=== PATIENT | male | born 1975 | race Two or more races ===

== ENCOUNTER 2017-04-15 08:44 | Inpatient (IN) | payer OTHER ==
[2017-04-15 09:57] VITALS: BMI 27.8
--- NOTE | 2017-04-15 11:25 | HP ---
CIWA Score - CIWA Score Nausea/Vomitin Muscle Tremors: 4-Moderate,w/Arms Extend Anxiety: 4-Mod. Anxious/Guarded Agitation: 3 Paroxysmal Sweats: 3 Orientation: 0-Oriented Tacttile Disturbances: 0-None Auditory Disturbances: 0-None Visual Disturbances: 0-None Headache: 2-Mild CIWA-Ar Total Score: 19 Admission ROS BHS - HPI Chief Complaint: Withdrawal sx. Allergies/Adverse Reactions: Allergies Allergy/AdvReac Type Severity Reaction Status Date / Time No Known Allergies Allergy Verified 04/15/17 10:22 History of Present Illness: 41 y/o man with a long hx of alcoholism is admitted for detox. Pt. has been in previous detox, denies sobriety. Exam Limitations: No Limitations - Ebola screening Have you traveled outside of the country in the last 21 days: No (N) Have you had contact with anyone from an Ebola affected area: No Have you been sick,other than usual withdrawal symptoms: No Do you have a fever: No - Review of Systems Constitutional: Diaphoresis EENT: reports: No Symptoms Reported Respiratory: reports: No Symptoms reported Cardiac: reports: No Symptoms Reported GI: reports: Nausea, Abdominal cramping Musculoskeletal: reports: No Symptoms Reported Integumentary: reports: Sweating Neuro: reports: Headache, Tremors Endocrine: reports: No Symptoms Reported Hematology: reports: No Symptoms Reported Psychiatric: reports: No Sypmtoms Reported Other Systems: Reviewed and Negative Patient History - Patient Medical History Hx Anemia: No Hx Asthma: No Hx Chronic Obstructive Pulmonary Disease (COPD): No Hx Cancer: No Hx Cardiac Disorders: No Hx Congestive Heart Failure: No Hx Hypertension: No Hx Hypercholesterolemia: No Hx Pacemaker: No HX Cerebrovascular Accident: No Hx Seizures: No Hx Dementia: No Hx Diabetes: No Hx Gastrointestinal Disorders: Yes (Dyspepsia) Hx Liver Disease: No Hx Genitourinary Disorders: No Hx Sexually Transmitted Disorders: No Hx Renal Disease (ESRD): No Hx Thyroid Disease: No Hx Human Immunodeficiency Virus (HIV): No Hx Hepatitis C: No Hx Depression: Yes Hx Suicide Attempt: No Hx Bipolar Disorder: No Hx Schizophrenia: No - Patient Surgical History Past Surgical History: Yes Hx Orthopedic Surgery: Yes (right ankle 1992 & right hand 2015) - PPD History Previous Implant?: Yes Documented Results: Negative w/o proof Implanted On Prior [facility] Admission?: Yes Date: 05/22/15 PPD to be Administered?: Yes - Smoking Cessation Smoking history: Current every day smoker Have you smoked in the past 12 months: Yes Aproximately how many cigarettes per day: 3 Hx Chewing Tobacco Use: No Initiated information on smoking cessation: Yes 'Breaking Loose' booklet given: 04/15/17 - Substance & Tx. History Hx Alcohol Use: Yes Hx Substance Use: Yes Substance Use Type: Alcohol, Cocaine, Marijuana Hx Substance Use Treatment: Yes (Detox at [facility] 05/2015) - Substances Abused Alcohol Route: Oral Frequency: Daily Amount used: FIFTH OF VODKA Age of first use: 22 Date of Last Use: 04/14/17 Crack Route: Smoking Frequency: 3-6 times per week Amount used: $150 Age of first use: 36 Date of Last Use: 04/12/17 Marijuana/Hashish Route: Smoking Frequency: 1-3 times last 30 days Amount used: 1 BLUNT Age of first use: 22 Date of Last Use: 04/14/17 Family Disease History - Family Disease History Family History: Denies Admission Physical Exam [facility] - Vital Signs Vital Signs: Vital Signs - 24 hr 04/15/17 09:44 Temperature 97.7 F Pulse Rate 72 Respiratory 18 Rate Blood Pressure 100/67 - Physical General Appearance: Yes: Tremorous, Sweating, Anxious HEENTM: Yes: Within Normal Limits Respiratory: Yes: Chest Non-Tender, Lungs Clear Neck: Yes: Supple Breast: Yes: Breast Exam Deferred Cardiology: Yes: Regular Rhythm, Regular Rate, S1, S2 Abdominal: Yes: Normal Bowel Sounds, Non Tender, Flat Genitourinary: Yes: Within Normal Limits Back: Yes: Within Normal Limits Musculoskeletal: Yes: Within Normal Limits Extremities: Yes: Tremors Neurological: Yes: Fully Oriented, Alert Integumentary: Yes: Diaphoresis Lymphatic: Yes: Within Normal Limits - Diagnostic (1) Alcohol dependence with uncomplicated withdrawal Current Visit: Yes Status: Acute (2) Cocaine dependence Current Visit: Yes Status: Acute Qualifiers: Substance use status: uncomplicated Qualified Code(s): F14.20 - Cocaine dependence, uncomplicated Cleared for Admission [facility] - Detox or Rehab [facility] Level of Care: Medically Managed Detox Regimen/Protocol: Librium [facility] Breath Alcohol Content Breath Alcohol Content: 0 Urine Drug Screen - Results Drug Screen Negative: No Urine Drug Screen Results: THC-Marijuana, PACO-Cocaine
[2017-04-15] MEDS ORDERED: IBUPROFEN 400 MG TABLET (FP) PO PRN (11:33)
[2017-04-15] MEDS ORDERED: ACETAMINOPHEN 325 MG TABLET (FP) PO PRN (11:33)
[2017-04-15] MEDS ORDERED: MENTHOL/PHENOL 1 EACH UD MM PRN (11:33)
[2017-04-15] MEDS ORDERED: LOPERAMIDE HCL 2 MG CAPSULE PO PRN (11:33)
[2017-04-15] MEDS ORDERED: guaiFENesin/D-METHORPHAN HB 10 ML UNIT-DOSE CUPS PO PRN (11:33)
[2017-04-15] MEDS ORDERED: NICOTINE POLACRILEX 2 MG GUM BUC PRN (11:33)
[2017-04-15] MEDS ORDERED: MAGNESIUM CITRATE 300 ML BOTTLE PO PRN (11:33)
[2017-04-15] MEDS ORDERED: P-EPHED 60MG/TRIPROLIDI 2.5MG TABLET PO PRN (11:33)
[2017-04-15] MEDS ORDERED: MAGNESIUM HYDROX 2400MG/30ML ORAL SUSPENSION 30 ML CUP PO PRN (11:33)
[2017-04-15] MEDS ORDERED: chlordiazePOXIDE HCL 25 MG CAPSULE PO ONE (12:17)
[2017-04-15] MEDS: NICOTINE 7 MG/24 HOURS TOPICAL PATCH TD SCH (13:48)
[2017-04-15] MEDS: hydrOXYzine PAMOATE 50 MG CAPSULE (FP) PO PRN ×2 (15:17→22:22)
--- NOTE | 2017-04-15 16:32 | EKG ---
Test Reason : Blood Pressure : / mmHG Vent. Rate : 061 BPM Atrial Rate : 061 BPM P-R Int : 168 ms QRS Dur : 102 ms QT Int : 386 ms P-R-T Axes : 056 041 035 degrees QTc Int : 388 ms NORMAL SINUS RHYTHM NORMAL ECG NO PREVIOUS ECGS AVAILABLE Confirmed by MD QUE, ESHA ([id number]) on 04/15/2017 4:32:28 PM Referred By: Confirmed By:ESHA GREY MD
[2017-04-15] MEDS: chlordiazePOXIDE HCL 25 MG CAPSULE PO SCH ×2 (17:26→22:19)
[2017-04-15 18:17] LABS: URINE APPEARANCE CLEAR; URINE BILIRUBIN NEGATIVE (NEGATIVE); URINE BLOOD NEGATIVE (NEGATIVE); URINE COLOR YELLOW; URINE GLUCOSE (UA) NEGATIVE (NEGATIVE); URINE KETONE NEGATIVE (NEGATIVE); URINE LEUK ESTERASE NEGATIVE (NEGATIVE); URINE NITRITE NEGATIVE (NEGATIVE); URINE PROTEIN NEGATIVE (NEGATIVE); URINE UROBILINOGEN NEGATIVE mg/dL (0.2-1.0)
[2017-04-15] MEDS: THIAMINE HCL 100 MG TABLET (FP) PO SCH (22:20)
[2017-04-15 23:09] LABS: URINE LEUK ESTERASE Negative (NEGATIVE)
[2017-04-16] MEDS: chlordiazePOXIDE HCL 25 MG CAPSULE PO SCH ×4 (05:19→22:36)
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
[2017-04-16 09:49] LABS: MCH 30.9 pg (25.7-33.7); MCHC 33.2 g/dl (32.0-35.9); MEAN PLT VOLUME 9.4 fl (7.5-11.1); PLATELET COUNT 260 K/MM3 (134-434); RDW 14.6 % (11.9-15.9); WHITE BLOOD COUNT 8.2 K/mm3 (4.0-10.0)
[2017-04-16 10:05] LABS: ALBUMIN 3.9 g/dl (3.4-5.0); ALK PHOS 61 U/L (45-117); ANION GAP 7 (8-16); BILIRUBIN,TOTAL 0.6 mg/dL (0.2-1.0); CALCIUM 8.8 mg/dL (8.5-10.1); CO2 30 mmol/L (21-32); CREATININE 1.1 mg/dL (0.7-1.3); GLUCOSE,RANDOM 67 mg/dL (74-106); SGOT/AST 25 U/L (15-37); SGPT/ALT 30 U/L (12-78); TOT PROT 7.4 g/dl (6.4-8.2)
[2017-04-16] MEDS: NICOTINE 7 MG/24 HOURS TOPICAL PATCH TD SCH (10:45)
[2017-04-16] MEDS: PRENATAL VITAMINS W/ FOLIC ACID TABLET (FP) PO SCH (10:45)
[2017-04-16] MEDS: hydrOXYzine PAMOATE 50 MG CAPSULE (FP) PO PRN ×3 (10:47→22:38)
--- NOTE | 2017-04-16 14:29 | PN ---
S CIWA - CIWA Score Nausea/Vomitin-No Nausea/No Vomiting Muscle Tremors: 4-Moderate,w/Arms Extend Anxiety: 3 Agitation: 3 Paroxysmal Sweats: No Perspiration Orientation: 0-Oriented Tacttile Disturbances: 0-None Auditory Disturbances: 0-None Visual Disturbances: 2-Mild Sensitivity Headache: 4-Moderately Severe CIWA-Ar Total Score: 16 BHS Progress Note (SOAP) Subjective: Tremors, Body Aches, H/A, Interrupted Sleep, Anxious. Objective: PT. A & O X 3, OBSERVED AMBULATING ON UNIT. NO ACUTE DISTRESS. 04/16/17 14:27 Vital Signs Temperature 97.6 F 04/16/17 09:42 Pulse Rate 67 04/16/17 09:42 Respiratory Rate 18 04/16/17 09:42 Blood Pressure 103/68 04/16/17 09:42 O2 Sat by Pulse Oximetry (%) Laboratory Tests 04/15/17 04/16/17 04/16/17 15:53 06:05 06:05 WBC 8.2 RBC 4.91 Hgb 15.1 Hct 45.6 MCV 93.0 MCH 30.9 MCHC 33.2 RDW 14.6 Plt Count 260 D MPV 9.4 D Sodium 140 Potassium 4.4 Chloride 103 Carbon Dioxide 30 Anion Gap 7 L BUN 12 D Creatinine 1.1 Creat Clearance w eGFR > 60 Random Glucose 67 L D Calcium 8.8 Total Bilirubin 0.6 D AST 25 ALT 30 Alkaline Phosphatase 61 Total Protein 7.4 D Albumin 3.9 Urine Color Yellow Urine Appearance Clear Urine pH 5.0 D Ur Specific [place] 1.026 Urine Protein Negative Urine Glucose (UA) Negative Urine Ketones Negative Urine Blood Negative Urine Nitrite Negative Urine Bilirubin Negative Urine Urobilinogen Negative Ur Leukocyte Esterase Negative RPR Titer 04/16/17 06:05 WBC RBC Hgb Hct MCV MCH MCHC RDW Plt Count MPV Sodium Potassium Chloride Carbon Dioxide Anion Gap BUN Creatinine Creat Clearance w eGFR Random Glucose Calcium Total Bilirubin AST ALT Alkaline Phosphatase Total Protein Albumin Urine Color Urine Appearance Urine pH Ur Specific [place] Urine Protein Urine Glucose (UA) Urine Ketones Urine Blood Urine Nitrite Urine Bilirubin Urine Urobilinogen Ur Leukocyte Esterase RPR Titer Nonreactive LABS NOTED. Assessment: 04/16/17 14:28 WITHDRAWAL SYMPTOMS. Plan: CONTINUE DETOX.
[2017-04-16] MEDS: MAG HYDROX/AL HYDROX/SIMETH 30 ML UNIT-DOSE CUP PO PRN (18:43)
[2017-04-16] MEDS: THIAMINE HCL 100 MG TABLET (FP) PO SCH (22:36)
[2017-04-16] MEDS: QUEtiapine FUMARATE 100 MG TABLET (FP) PO SCH (22:36)
[2017-04-17] MEDS: chlordiazePOXIDE HCL 25 MG CAPSULE PO SCH ×2 (05:31→10:50)
[2017-04-17] MEDS: hydrOXYzine PAMOATE 50 MG CAPSULE (FP) PO PRN ×3 (05:33→22:25)
[2017-04-17] MEDS: PRENATAL VITAMINS W/ FOLIC ACID TABLET (FP) PO SCH (10:50)
[2017-04-17] MEDS: NICOTINE 7 MG/24 HOURS TOPICAL PATCH TD SCH (10:50)
[2017-04-17] MEDS: MAG HYDROX/AL HYDROX/SIMETH 30 ML UNIT-DOSE CUP PO PRN (10:56)
[2017-04-17] MEDS ORDERED: diphenhydrAMINE HCL 50 MG CAPSULE PO PRN ×2 (11:31→22:00)
--- NOTE | 2017-04-17 13:56 | PN ---
[facility] CIWA - CIWA Score Nausea/Vomitin-No Nausea/No Vomiting Muscle Tremors: 4-Moderate,w/Arms Extend Anxiety: 4-Mod. Anxious/Guarded Agitation: 4-Moderately Restless Paroxysmal Sweats: 3 Orientation: 0-Oriented Tacttile Disturbances: 1-Very Mild Itch/Numbness Auditory Disturbances: 0-None Visual Disturbances: 0-None Headache: 0-None Present CIWA-Ar Total Score: 16 S Progress Note (SOAP) Subjective: Anxious, feeling depressed (denies SI, HI, AH, VH), tremor, interrupted sleep Objective: 04/17/17 13:54 Last Vital Signs Temp Pulse Resp BP Pulse Ox 98.1 F 90 18 111/69 04/17/17 10:37 04/17/17 10:37 04/17/17 10:37 04/17/17 10:37 Laboratory Tests 04/15/17 04/16/17 04/16/17 15:53 06:05 06:05 WBC 8.2 RBC 4.91 Hgb 15.1 Hct 45.6 MCV 93.0 MCH 30.9 MCHC 33.2 RDW 14.6 Plt Count 260 D MPV 9.4 D Sodium 140 Potassium 4.4 Chloride 103 Carbon Dioxide 30 Anion Gap 7 L BUN 12 D Creatinine 1.1 Creat Clearance w eGFR > 60 Random Glucose 67 L D Calcium 8.8 Total Bilirubin 0.6 D AST 25 ALT 30 Alkaline Phosphatase 61 Total Protein 7.4 D Albumin 3.9 Urine Color Yellow Urine Appearance Clear Urine pH 5.0 D Ur Specific [place] 1.026 Urine Protein Negative Urine Glucose (UA) Negative Urine Ketones Negative Urine Blood Negative Urine Nitrite Negative Urine Bilirubin Negative Urine Urobilinogen Negative Ur Leukocyte Esterase Negative RPR Titer 04/16/17 06:05 WBC RBC Hgb Hct MCV MCH MCHC RDW Plt Count MPV Sodium Potassium Chloride Carbon Dioxide Anion Gap BUN Creatinine Creat Clearance w eGFR Random Glucose Calcium Total Bilirubin AST ALT Alkaline Phosphatase Total Protein Albumin Urine Color Urine Appearance Urine pH Ur Specific [place] Urine Protein Urine Glucose (UA) Urine Ketones Urine Blood Urine Nitrite Urine Bilirubin Urine Urobilinogen Ur Leukocyte Esterase RPR Titer Nonreactive Labs noted Assessment: 04/17/17 13:55 Withdrawal symptoms Plan: Continue detox
[2017-04-17] MEDS: chlordiazePOXIDE HCL 25 MG CAPSULE PO PRN ×2 (14:54→20:08)
[2017-04-17] MEDS: chlordiazePOXIDE 5 MG CAPSULE PO SCH ×2 (17:47→22:25)
[2017-04-17] MEDS: THIAMINE HCL 100 MG TABLET (FP) PO SCH (22:25)
[2017-04-17] MEDS: QUEtiapine FUMARATE 100 MG TABLET (FP) PO SCH (22:25)
[2017-04-18] MEDS: chlordiazePOXIDE 5 MG CAPSULE PO SCH ×2 (05:24→10:33)
[2017-04-18] MEDS: hydrOXYzine PAMOATE 50 MG CAPSULE (FP) PO PRN (05:26)
[2017-04-18] MEDS: MAG HYDROX/AL HYDROX/SIMETH 30 ML UNIT-DOSE CUP PO PRN ×2 (05:27→11:59)
[2017-04-18] MEDS: PRENATAL VITAMINS W/ FOLIC ACID TABLET (FP) PO SCH (10:33)
[2017-04-18] MEDS: NICOTINE 7 MG/24 HOURS TOPICAL PATCH TD SCH (10:34)
[2017-04-18] MEDS: CYCLOBENZAPRINE HCL 5 MG TABLET PO PRN ×2 (10:35→22:38)
--- NOTE | 2017-04-18 12:25 | PN ---
BHS Progress Note (SOAP) Subjective: Body Aches, Anxious, Tremors. Objective: PT. A & O X 3, OBSERVED AMBULATING ON UNIT. NO ACUTE DISTRESS. 04/18/17 12:24 Vital Signs Temperature 96 F L 04/18/17 09:24 Pulse Rate 99 H 04/18/17 09:24 Respiratory Rate 20 04/18/17 09:24 Blood Pressure 107/80 04/18/17 09:24 O2 Sat by Pulse Oximetry (%) Laboratory Tests 04/15/17 04/16/17 04/16/17 15:53 06:05 06:05 WBC 8.2 RBC 4.91 Hgb 15.1 Hct 45.6 MCV 93.0 MCH 30.9 MCHC 33.2 RDW 14.6 Plt Count 260 D MPV 9.4 D Sodium 140 Potassium 4.4 Chloride 103 Carbon Dioxide 30 Anion Gap 7 L BUN 12 D Creatinine 1.1 Creat Clearance w eGFR > 60 Random Glucose 67 L D Calcium 8.8 Total Bilirubin 0.6 D AST 25 ALT 30 Alkaline Phosphatase 61 Total Protein 7.4 D Albumin 3.9 Urine Color Yellow Urine Appearance Clear Urine pH 5.0 D Ur Specific [place] 1.026 Urine Protein Negative Urine Glucose (UA) Negative Urine Ketones Negative Urine Blood Negative Urine Nitrite Negative Urine Bilirubin Negative Urine Urobilinogen Negative Ur Leukocyte Esterase Negative RPR Titer 04/16/17 06:05 WBC RBC Hgb Hct MCV MCH MCHC RDW Plt Count MPV Sodium Potassium Chloride Carbon Dioxide Anion Gap BUN Creatinine Creat Clearance w eGFR Random Glucose Calcium Total Bilirubin AST ALT Alkaline Phosphatase Total Protein Albumin Urine Color Urine Appearance Urine pH Ur Specific [place] Urine Protein Urine Glucose (UA) Urine Ketones Urine Blood Urine Nitrite Urine Bilirubin Urine Urobilinogen Ur Leukocyte Esterase RPR Titer Nonreactive LABS NOTED. Assessment: 04/18/17 12:24 WITHDRAWAL SYMPTOMS. Plan: CONTINUE DETOX.
[2017-04-18] MEDS ORDERED: RANITIDINE HCL 150 MG TABLET (FP) PO ONE (15:15)
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
[2017-04-18] MEDS: chlordiazePOXIDE HCL 10 MG CAPSULE PO SCH ×2 (17:31→22:38)
[2017-04-18] MEDS ORDERED: RANITIDINE HCL 150 MG TABLET (FP) PO SCH (22:00)
[2017-04-18] MEDS: THIAMINE HCL 100 MG TABLET (FP) PO SCH (22:38)
[2017-04-18] MEDS: QUEtiapine FUMARATE 100 MG TABLET (FP) PO SCH (22:38)
[2017-04-19] MEDS: chlordiazePOXIDE HCL 10 MG CAPSULE PO SCH (05:30)
[2017-04-19 06:34] VITALS: BP 107/67; PULSE 84; TEMP 96.1
--- NOTE | 2017-04-19 11:50 | DS ---
[facility] Detox Discharge Summary Admission Date: 04/15/17 Discharge Date: 04/19/17 - History Present History: Alcohol Dependence Pertinent Past History: gerd - Physical Exam Results Vital Signs: Vital Signs Temperature 96.1 F L 04/19/17 06:33 Pulse Rate 84 04/19/17 06:33 Respiratory Rate 18 04/19/17 06:33 Blood Pressure 107/67 04/19/17 06:33 O2 Sat by Pulse Oximetry (%) Pertinent Admission Physical Exam Findings: withdrawal sx Laboratory Last Values WBC 8.2 K/mm3 (4.0-10.0) 04/16/17 06:05 RBC 4.91 M/mm3 (4.00-5.60) 04/16/17 06:05 Hgb 15.1 GM/dL (11.7-16.9) 04/16/17 06:05 Hct 45.6 % (35.4-49) 04/16/17 06:05 MCV 93.0 fl (80-96) 04/16/17 06:05 MCH 30.9 pg (25.7-33.7) 04/16/17 06:05 MCHC 33.2 g/dl (32.0-35.9) 04/16/17 06:05 RDW 14.6 % (11.9-15.9) 04/16/17 06:05 Plt Count 260 K/MM3 (134-434) D 04/16/17 06:05 MPV 9.4 fl (7.5-11.1) D 04/16/17 06:05 Sodium 140 mmol/L (136-145) 04/16/17 06:05 Potassium 4.4 mmol/L (3.5-5.1) 04/16/17 06:05 Chloride 103 mmol/L (98-107) 04/16/17 06:05 Carbon Dioxide 30 mmol/L (21-32) 04/16/17 06:05 Anion Gap 7 (8-16) L 04/16/17 06:05 BUN 12 mg/dL (7-18) D 04/16/17 06:05 Creatinine 1.1 mg/dL (0.7-1.3) 04/16/17 06:05 Creat Clearance w eGFR > 60 (>60) 04/16/17 06:05 Random Glucose 67 mg/dL (74-106) L D 04/16/17 06:05 Calcium 8.8 mg/dL (8.5-10.1) 04/16/17 06:05 Total Bilirubin 0.6 mg/dL (0.2-1.0) D 04/16/17 06:05 AST 25 U/L (15-37) 04/16/17 06:05 ALT 30 U/L (12-78) 04/16/17 06:05 Alkaline Phosphatase 61 U/L (45-117) 04/16/17 06:05 Total Protein 7.4 g/dl (6.4-8.2) D 04/16/17 06:05 Albumin 3.9 g/dl (3.4-5.0) 04/16/17 06:05 Urine Color Yellow 04/15/17 15:53 Urine Appearance Clear 04/15/17 15:53 Urine pH 5.0 (5.0-8.0) D 04/15/17 15:53 Ur Specific [place] 1.026 (1.001-1.035) 04/15/17 15:53 Urine Protein Negative (NEGATIVE) 04/15/17 15:53 Urine Glucose (UA) Negative (NEGATIVE) 04/15/17 15:53 Urine Ketones Negative (NEGATIVE) 04/15/17 15:53 Urine Blood Negative (NEGATIVE) 04/15/17 15:53 Urine Nitrite Negative (NEGATIVE) 04/15/17 15:53 Urine Bilirubin Negative (NEGATIVE) 04/15/17 15:53 Urine Urobilinogen Negative mg/dL (0.2-1.0) 04/15/17 15:53 Ur Leukocyte Esterase Negative (NEGATIVE) 04/15/17 15:53 RPR Titer Nonreactive (NONREACTIVE) 04/16/17 06:05 lab noted - Treatment Hospital Course: Detox Protocol Followed, Detoxed Safely, Responded well, Discharged Condition Good, Rehab Referral Accepted - Medication Discharge Medications: Ambulatory Orders Quetiapine Fumarate [Seroquel] 100 mg PO HS #30 tablet 04/16/17 - AMA Did Patient Leave Against Medical Advice: No
== END 2017-04-19 09:30 | disposition home or self-care (01) | DRG 773 ==
LOC: YASAS 08:44 → Y3N 12:03
PROVIDERS: ADMIT Internal Medicine; ATTEND Internal Medicine
PROC: HZ2ZZZZ Detoxification Services for Substance Abuse Treatment (ICD-10-PCS; principal; 2017-04-15)
DX: F11.23 Opioid dependence with withdrawal (principal); F14.20 Cocaine dependence, uncomplicated; F17.210 Nicotine dependence, cigarettes, uncomplicated; F19.24 Other psychoactive substance dependence with psychoactive substance-induced mood disorder; F19.282 Other psychoactive substance dependence with psychoactive substance-induced sleep disorder; F32.9 Major depressive disorder, single episode, unspecified; Z59.0 Homelessness
CPT/HCPCS: 36415; 71020-TC; 80053; 81003; 85027; 86593; 93005; 93010